=== PATIENT | male | born 1955 | race Caucasian/White ===

== ENCOUNTER → 2018-01-14 | Outpatient (CLI) | payer OTHER ==
[2018-01-14 13:15] LABS: Basophils # (A) 0.1 k/uL (0-0.2); Basophils % (A) 1 %; Eosinophils # (A) 0.1 k/uL (0-0.7); Eosinophils % (A) 1 %; HCT 48.5 % (39.0-53.0); HGB 16.2 gm/dL (13.0-17.5); Lymphocytes # (A) 3.2 k/uL (1.0-4.8); Lymphocytes % (A) 41 %; MCH 30.6 pg (25.0-35.0); MCHC 33.4 g/dL (31.0-37.0); MCV 91.5 fL (80.0-100.0); Mean Platelet Volume 6.7; Monocytes # (A) 0.6 k/uL (0-1.0); Monocytes % (A) 8 %; Neutrophils # (A) 3.5 k/uL (1.3-7.7); Neutrophils % (A) 46 %; Platelet Count 343 k/uL (150-450); RDW 13.1 % (11.5-15.5); WBC 7.7 k/uL (3.8-10.6)
[2018-01-14 13:19] LABS: Potassium 4.2 mmol/L (3.5-5.1)
== END | disposition home or self-care (01) ==
LOC: LABPAT 12:33
PROVIDERS: ATTEND Orthopaedic Surgery
DX: Z01.812 Encounter for preprocedural laboratory examination (principal); Z01.818 Encounter for other preprocedural examination; M75.41 Impingement syndrome of right shoulder; R58 Hemorrhage, not elsewhere classified; Z79.899 Other long term (current) drug therapy
CPT/HCPCS: 36415; 80051; 85025; 93005

== ENCOUNTER 2018-01-27 07:56 | Day surgery (SDC) | payer OTHER ==
[2018-01-15 11:00] VITALS: BMI 17.9
--- NOTE | 2018-01-26 09:02 | HP ---
HISTORY AND PHYSICAL Surgery is scheduled for 01/27/2018. Madi Pina is a 62-year-old patient seen with progressive right shoulder pain. We discussed treatment options. He elected to proceed with right shoulder arthroscopy. Consent regarding the procedure was obtained. Clearance was provided by Rylie Maurer. PAST MEDICAL HISTORY: Past medical history is noncontributory. PAST SURGICAL HISTORY: Unknown. DAILY MEDICATIONS: Ibuprofen. ALLERGIES: None reported. SOCIAL HISTORY: Patient smokes 1 pack of cigarettes daily. PHYSICAL EVALUATION OF RIGHT SHOULDER: Flexion 90 degrees, abduction 70 degrees, external rotation 50 degrees with pain and weakness. Tenderness along the anterolateral acromion and rotator cuff insertion site. Impingement positive at 80 degrees. Drop-arm sign is positive. Distal neurovascular exam is intact. Right shoulder radiographs revealed a lateral downsloping anterior acromion as well as acromioclavicular joint osteoarthritis. IMPRESSION: Right shoulder impingement with rotator cuff tear and acromioclavicular joint osteoarthritis. PLAN: Right shoulder arthroscopy with subacromial decompression probable arthroscopic rotator cuff repair, possible Bhanu procedure and debridement. MMODL / IJN: [id number] /
[~2018-01-27 07:56] MED LIST: HYDROmorphone 0.5 MG/0.5 ML SYRINGE IVP PRN; LACTATED RINGERS 1,000 ML IV SCH; ONDANSETRON 4 MG/2 ML VIAL IVP PRN; ceFAZolin 1,000 MG in DEXTROSE/WATER 1 50ML.BAG IV ONE
[2018-01-27 08:50] VITALS: RESP 16
[2018-01-27] MEDS ORDERED: LIDOCAINE 1% 20 ML VIAL (10MG/ML) FOR IV START INTRADERMA ONE (08:51)
[2018-01-27] MEDS ORDERED: DEXAMETHASONE SOD PHOSPHATE 10 MG/ML 1 ML VIAL IV ONE (08:55)
[2018-01-27] MEDS ORDERED: MIDAZOLAM 2 MG/2 ML VIAL ONE (09:04)
[2018-01-27] MEDS ORDERED: LIDOCAINE 1% INJ 10MG/ML (20 ML MDV) ONE (11:15)
[2018-01-27] MEDS ORDERED: ePHEDrine SULFATE/0.9% NACL/PF 50 MG/5 ML SYRINGE IV ONE (11:15)
[2018-01-27] MEDS ORDERED: LIDOCAINE 2%-EPI 1:100,000 20 ML VIAL ONE (11:15)
[2018-01-27] MEDS ORDERED: ROPIVACAINE 5 MG/ML 30 ML VIAL ONE (11:15)
[2018-01-27] MEDS ORDERED: fentaNYL (PF) 50 MCG/ML 2 ML AMP ONE (11:15)
[2018-01-27] MEDS ORDERED: PROPOFOL 10 MG/ML 20 ML VIAL IV ONE (11:15)
--- NOTE | 2018-01-27 12:55 | P.OP ---
Date of Procedure: 01/27/18 Preoperative Diagnosis: Right shoulder impingement Postoperative Diagnosis: 1. Right shoulder rotator cuff tear 2. Right shoulder impingement 3. Right shoulder acromioclavicular joint osteoarthritis 4. Right shoulder partial long head biceps tendon tear 5. Right shoulder superficial labral tear Procedure(s) Performed: 1. Right shoulder arthroscopic rotator cuff repair 2. Right shoulder arthroscopic subacromial decompression 3. Right shoulder arthroscopic Bhanu procedure 4. Right shoulder arthroscopic biceps tenotomy 5. Right shoulder arthroscopic debridement labral tear Implants: 1-valeris 5.5 peek anchor Anesthesia: GETA, regional (Interscalene block) Surgeon: William Woodward [employer] Dispatcher #1: Bebeto Tolbert Estimated Blood Loss (ml): 15 Pathology: none sent Condition: stable Disposition: PACU Indications for Procedure: 62-year-old patient seen with progressive right shoulder pain. After treatment options were discussed, he elected to proceed with arthroscopy. Operative Findings: see description of procedure Description of Procedure: Patient underwent a shoulder block by department of anesthesia. The patient was then taken to the operative suite. The patient underwent a general anesthetic by the department of anesthesia. The patient was placed into a lateral position and secured. There was appropriate padding of the bony prominence. Right shoulder was then prepped and draped in normal sterile orthopedic fashion. We placed the extremity in 10 pounds of longitudinal traction. A posterior incision was now made for a posterior working portal site. The trocar and cannula were inserted into the glenohumeral joint. Arthroscopy was initiated. Spinal needle was now inserted anteriorly, to ascertain the anterior working portal site. An incision was now made in that area, a trocar was inserted followed by a probe. Was some superficial tearing of the superior labrum. Partial tearing and hyperemia long head biceps tendon. Mild grade 1 chondromalacia changes with no osteochondral tears. I performed an arthroscopic biceps tenotomy. I debrided the superficial labral tear down to stable tissue. The residual labrum was stable. Instruments were now removed from glenohumeral joint. Utilizing the posterior working portal site, the trocar and cannula were inserted into the subacromial space. Arthroscopy initiated. I made an incision 2 fingerbreadths lateral to the acromion. I introduced my trocar followed by my ArthroCare ablator. I now began ablating thick subacromial bursal tissue, which exposed the undersurface of the anterior acromion. This was diminished subacromial space. There was a very prominent anterior acromion. A motorized bur was introduced and a subacromial decompression was performed. I also excised some osteophytes off the inferior aspect of the distal clavicle. The AC joint was visualized and noted to be fairly arthritic. Our motorized bur was introduced in the anterior portal site and a Bhanu procedure was performed without difficulty, decompressing the AC joint nicely. I turned my attention to the rotator cuff. There was a 1-1.5 cm tear along the anterior aspect of the distal supraspinatus. I debrided the margins down to stable tissue. The defect now measured 1.5 cm and was freely mobile over the footprint. I abraded the footprint with a motorized bur. I passed 2 everted mattress sutures through good bites of rotator cuff tendon. I pull the tendon over the footprint and repaired it with one single 5.5 peek anchors which did compress the tendon along the footprint nicely. The residual suture limbs were clipped. The repair was probed and found to be stable. I injected 1 mL UCT intra- articular. Instruments were now removed from the portal sites. All portal sites were approximated with nylon suture. Sterile dressings were applied followed by a shoulder immobilizer. Luis A LLANOS assisted with the procedure. The patient was awakened, transferred to a bed, and taken to recovery in stable condition.
[2018-01-27 12:58] VITALS: TEMP 97
[2018-01-27 13:59] VITALS: BP 103/64; PULSE 74
== END 2018-01-27 14:17 | disposition home or self-care (01) ==
LOC: OR 07:56
PROVIDERS: ATTEND Orthopaedic Surgery
DX: M75.101 Unspecified rotator cuff tear or rupture of right shoulder, not specified as traumatic (principal); M25.811 Other specified joint disorders, right shoulder; M19.011 Primary osteoarthritis, right shoulder; S46.111A Strain of muscle, fascia and tendon of long head of biceps, right arm, initial encounter; M25.711 Osteophyte, right shoulder; S43.431A Superior glenoid labrum lesion of right shoulder, initial encounter; X58.XXXA Exposure to other specified factors, initial encounter; F17.210 Nicotine dependence, cigarettes, uncomplicated; Z79.1 Long term (current) use of non-steroidal anti-inflammatories (NSAID); Z91.018 Allergy to other foods
CPT/HCPCS: 64415; 29826; 29827; 29824; C1713; C1765; J2250; J1100; J2001; J3010; J0690; J2795; J2704

== ENCOUNTER → 2018-09-28 | Outpatient (CLI) | payer OTHER ==
--- NOTE | 2018-09-28 21:42 | CT ---
EXAMINATION TYPE: CT sinus wo con DATE OF EXAM: 09/28/2018 COMPARISON: NONE HISTORY: Chronic sinusitis per order. Sinus congestion for patient. CT DLP: 493.7 mGycm. Automated Exposure Control for Dose Reduction was Utilized. TECHNIQUE: CT scan of the sinuses is performed without contrast, axial images are obtained, coronal r eformatted images are also reviewed. FINDINGS: There is mild/moderate mucosal thickening inferiorly in the right maxillary sinus with nonv isualized wall suggesting remote trauma or fracture involving inferior aspect of the medial wall. The re is 6 mm mucous retention cyst or polyp in the lateral aspect of the left posterior ethmoid sinus o therwise paranasal sinuses are grossly clear. No suspicious opacification is seen. The ostiomeatal c omplex is patent bilaterally on the coronal images. Nasal septum is deviated to right of midline randolph g posterior aspect Visualized portion of mastoid air cells show no abnormal opacification. The globes are intact bilate rally. Visualized portion of brain parenchyma is unremarkable. IMPRESSION: Some chronic paranasal sinus disease. No acute sinusitis.
== END | disposition home or self-care (01) ==
LOC: RADCTMAIN 17:01
PROVIDERS: ATTEND Otolaryngology
DX: J34.89 Other specified disorders of nose and nasal sinuses (principal); J32.9 Chronic sinusitis, unspecified
CPT/HCPCS: 70486

== ENCOUNTER 2018-11-04 08:49 | Day surgery (SDC) | payer OTHER ==
[2018-10-28 13:34] VITALS: BMI 17.9
[~2018-11-04 08:49] MED LIST changes: +DEXAMETHASONE SOD PHOSPHATE 10 MG/ML 1 ML VIAL IV ONE; +DEXAMETHASONE SOD PHOSPHATE 4 MG/ML 1 ML VIAL IV ONE; +FAMOTIDINE 20 MG/2 ML VIAL IV ONE; +LIDOCAINE 1% 20 ML VIAL (10MG/ML) FOR IV START INTRADERMA PRN; +ONDANSETRON 4 MG/2 ML VIAL IVP ONE; -ONDANSETRON 4 MG/2 ML VIAL IVP PRN; +SCOPOLAMINE 1.5MG/72HR PATCH TRANSDERM ONE
[2018-11-04 09:43] VITALS: TEMP 98.1
[2018-11-04] MEDS: OXYMETAZOLINE 0.05% NASL SPRAY 1 SPRAY BOTTLE NASAL ONE ×5 (09:47→10:11)
[2018-11-04] MEDS ORDERED: ePHEDrine SULFATE/0.9% NACL/PF 50 MG/5 ML SYRINGE IV ONE (11:25)
[2018-11-04] MEDS ORDERED: DEXAMETHASONE SOD PHOS (MDV) 100 MG/10 ML VIAL ONE (11:25)
[2018-11-04] MEDS ORDERED: PROPOFOL 10 MG/ML 20 ML VIAL IV ONE (11:25)
[2018-11-04] MEDS ORDERED: LIDOCAINE 1% INJ 10MG/ML (20 ML MDV) ONE (11:25)
[2018-11-04] MEDS ORDERED: fentaNYL (PF) 50 MCG/ML 2 ML AMP ONE (11:25)
[2018-11-04] MEDS ORDERED: SUCCINYLCHOLINE CHLORIDE 100 MG/5 ML SYR IV ONE (11:25)
[2018-11-04] MEDS ORDERED: MIDAZOLAM 2 MG/2 ML VIAL ONE (11:25)
[2018-11-04] MEDS ORDERED: PHENYLEPHRINE-0.9% NACL SYG 1 MG/10 ML SYRINGE ONE (11:25)
[2018-11-04] MEDS ORDERED: LIDOCAINE 1%-EPI 1:100,000 20 ML VIAL SQ ONE ×2 (11:26)
[2018-11-04] MEDS ORDERED: FLUORESCEIN STRIPS 1 MG STRIP MISCELLANE ONE (11:27)
[2018-11-04] MEDS ORDERED: EPINEPHrine 1 MG/ML (MDV) 30 ML VIAL TOPICAL ONE (11:27)
[2018-11-04] MEDS ORDERED: BACITRACIN 500 UNIT/GM OINT 28.4 GM TUBE TOPICAL ONE (11:27)
[2018-11-04] MEDS ORDERED: BUPIVACAIN-EPI 0.5%-1:200,000 30 ML VIAL SQ ONE ×2 (11:27)
[2018-11-04] MEDS ORDERED: LACTATED RINGERS 1,000 ML IV ONE (12:14)
--- NOTE | 2018-11-04 12:58 | P.OP ---
Date of Procedure: 11/04/18 Preoperative Diagnosis: Chronic sinusitis Deviated nasal septum Bilateral hypertrophy of inferior nasal turbinates Postoperative Diagnosis: Same Procedure(s) Performed: Septoplasty Bilateral submucosal resection of the inferior turbinates with outfracturing compression Bilateral functional endoscopic sinus surgery with maxillary antrostomies and total ethmoidectomies Anesthesia: ZHEN Surgeon: Lani King Estimated Blood Loss (ml): 10 Pathology: other (sinonasal) Condition: stable Disposition: PACU Indications for Procedure: Patient complains of constant sinus problems with nasal obstruction, anosmia, discolored drainage. Has been placed on multiple courses of antibiotics and cortisone nasal sprays with no improvement. This problem is been going on for years and is affecting his sleep pattern. Since he has failed medical therapy, surgery was recommended. All risks, benefits, and alternative therapies were discussed. Consent was obtained and all questions were answered. Operative Findings: Patient was found have a deviated septum to the right with a large septal spur on the right side. Patient also had lani pus in the axillary sinuses along with infection of the ethmoid sinuses bilaterally. The inferior turbinates were large and obstructive. Description of Procedure: This patient was taken to the operative room and placed in the supine position. A general inhalation anesthetic was administered to the patient by the department of anesthesia with a functioning IV line in place. The patient was monitored throughout the entire case by the department of anesthesia. The eyes were taped shut for protection. The patient was placed in a slight reverse Trendelenburg position. The patient had previously utilize Afrin nasal spray preoperatively. The nose was evaluated and the septum lateral nasal wall and inferior turbinates were injected with lidocaine 1% with epinephrine 1 100,000 bilaterally. Approximately 10 minutes were allowed wait for full vasoconstrictive effects to take place. At this point a caudal incision was made over the caudal portion of the left septum down to the mucoperichondrium. A mucoperichondrial flap was elevated on the left side and dissection was carried with use of tunnels posteriorly. We then made a crossover incision through the cartilage to the contralateral side and for the mucoperichondrial flap development was performed to the extent of visualization on the contralateral side. After the cartilage was freed with use of several crosshatching incisions and removal of some redundant strips of septal cartilage, the septum was straightened and placed back in the midline. The septum was sutured fixated to the ovarian groove. Excellent straightening occurred and the septum was visibly straight. Incision was closed with a 40 rapid Vicryl. We utilized a running nonlocking fashion for closure of the incision. A quilting stitch was used to reapproximate the septal flaps with use of a 40 rapid Vicryl. We then entered the nose with a 0 and 30 Figueredo malik endoscope. Previous to this we did inject the lateral nasal wall and middle turbinate and uncinate process with lidocaine 1% with epinephrine 1 100,000. Approximately 10 minutes were allowed wait for full vasoconstrictive effects to take place. With use of a microdebrider and a pediatric backbiter, we took down the uncinate process bilaterally. We then opened the maxillary sinuses bilaterally. We utilized a microdebrider for this and entered the maxillary sinuses and removed diseased tissue. This was done bilaterally. After the maxillary sinuses were opened and the diseased tissue was removed we entered the ethmoid bulla and with use of a microdebrider and up-biting Concepcion, we followed the fovea frontalis through the basal lamella and into the posterior ethmoid air cells and did a total ethmoidectomy. We removed the anterior ethmoid air cells with use of a microdebrider and up-biting boss. After all the anterior ethmoid air cells were removed we did the same in the posterior ethmoid. A total ethmoidectomy was completed in that fashion with removal of all the anterior and posterior ethmoid air cells and diseased tissue. All ethmoid septations were removed. Ethmoid sinuses were opened totally. Xerogel was inserted and minimal bleeding was encountered. We reinspected the skull base there is no signs of any orbital penetration or signs of any intracranial penetration. The sugical site was reinspected after the xerogel was placed and no bleeding was seen. Intranasal splints were inserted and fixated at the end of the case. We utilized Mcdowell nasal splints. There will be removed and the patient returns to the office. Attention was then paid to the inferior turbinates. The bilateral inferior turbinates were hypertrophic and obstructive. We entered the anterior portion of the inferior turbinates with use of a microdebrider. We remove bone and submucosal elements with use of a microdebrider bilaterally. The inferior turbinates underwent a submucosal resection with removal of submucosal tissue and bone. We obtained a much better and normal in size for breathing. The inferior turbinates were then outfractured and compressed with a WePay nasal elevator. Excellent airway was obtained and was symmetric bilaterally. No bleeding was encountered.
[2018-11-04 13:21] VITALS: RESP 18
[2018-11-04 14:04] VITALS: BP 129/76; PULSE 76
== END 2018-11-04 14:36 | disposition home or self-care (01) ==
LOC: OR 08:49
PROVIDERS: ATTEND Otolaryngology
DX: J32.9 Chronic sinusitis, unspecified (principal); J34.2 Deviated nasal septum; J34.3 Hypertrophy of nasal turbinates; F17.210 Nicotine dependence, cigarettes, uncomplicated
CPT/HCPCS: 88305; 88300; 30520; 31267; 31255; 30140; J0171; J2250; J1100 ×2; J2405; J2001; J3010; J0690; J2370; J0330; J2704

== ENCOUNTER → 2019-02-10 | Outpatient (CLI) | payer OTHER ==
--- NOTE | 2019-02-11 08:49 | CT ---
EXAMINATION TYPE: CT thoracic spine wo con DATE OF EXAM: 02/10/2019 COMPARISON: None HISTORY: abnormal thoracic spine finding commented on prior cxr. M [id number] CT DLP: 1088 mGycm Automated exposure control for dose reduction was used. TECHNIQUE: CT of the thoracic spine is performed in the axial plane at 3 mm thick sections. Reconstru cted images in the coronal and sagittal plane are reviewed. FINDINGS: Disc heights are preserved. Vertebral body heights are preserved. No spinal canal stenosis or neural foraminal stenosis is present. Note is made of some apical thickening along apices. Comparison images or reports are unavailable identify abnormality discussed on chest x-ray. IMPRESSION: NO SUSPICIOUS ACUTE OR CHRONIC CHANGES THROUGH THE THORACIC SPINE.
== END ==
LOC: RADCTMAIN 15:53
DX: R07.89 Other chest pain (principal)
CPT/HCPCS: 72128

== ENCOUNTER → 2020-04-28 | Outpatient (CLI) | payer OTHER ==
--- NOTE | 2020-04-30 10:54 | CT ---
EXAMINATION TYPE: CT chest wo con DATE OF EXAM: 04/28/2020 COMPARISON: None HISTORY: SOB, hx of COPD CT DLP: 161.5 mGycm, Automated exposure control for dose reduction was used. CONTRAST: Performed injected with 0 mL of Isovue 300. TECHNIQUE: Axial images were obtained at 5 mm thick sections. Reconstructed images are reviewed on [employer] computer in the coronal plane. FINDINGS: Portion of the thyroid visualized is normal. Bilateral apical scarring appears to be present. Emphysematous changes are evident. There is a densit y within the left upper lobe measuring 0.5 cm, series 4 image 30. There is a 0.5 cm nodule within the right middle lobe. Series 4 image 38. Monitoring is recommended. Suspected Apical scarring could be monitored at the same time. No enlarged mediastinal or hilar adenopathy is evident. The ascending aorta diameter at the level of the main pulmonary artery is 4.9 cm. The main pulmonary artery diameter at the bifurcation is 2.3 cm. Mild coronary artery calcifications present. Limited CT sections are obtained through the upper abdomen. Abdomen is essentially unremarkable. IMPRESSIONS: 1. Ascending thoracic aortic aneurysm of 4.9 cm. 2. Couple of small densities within the bilateral lung tay. Monitoring is recommended. Follow-up C T chest in 6 months is recommended. 3. COPD.
== END | disposition home or self-care (01) ==
LOC: RADCTMAIN 13:56
PROVIDERS: ATTEND Internal Medicine Pulmonary Disease
DX: I71.2 Thoracic aortic aneurysm, without rupture (principal); R91.8 Other nonspecific abnormal finding of lung field; J44.9 Chronic obstructive pulmonary disease, unspecified; Z72.0 Tobacco use
CPT/HCPCS: 71250

== ENCOUNTER → 2020-11-28 | Outpatient (CLI) | payer OTHER ==
[2020-11-28 14:36] LABS: African American GFR (CKD) >90 (>60 ml/min/1.73 sqM); Blood Urea Nitrogen 13 mg/dL (9-20); Non-African American GFR(CKD) >90 (>60 ml/min/1.73 sqM)
--- NOTE | 2020-11-28 15:28 | CT ---
EXAMINATION TYPE: CT angio chest DATE OF EXAM: 11/28/2020 3:14 PM COMPARISON: CT chest April 28, 2020 HISTORY: Follow up for thoracic aortic aneurysm. CT DLP: 470 mGycm Automated exposure control for dose reduction was used. CONTRAST: CTA scan of the thorax is performed without and with IV Contrast, patient injected with 100ml mL of I sovue 370, aneurysm protocol. 3D reconstructed images are created on an independent workstation and reviewed.. FINDINGS: LUNGS: Mild to moderate underlying emphysematous changes redemonstrated. Stable 5 mm right midlung no dule anteriorly measures 39 appears to localize to the minor fissure, benign intrafissural lymph node suspected. Ktyu-eb-opqnvzcs biapical pleural/minimal scarring redemonstrated. Mild to minimal linear scarring in the bases. No new nodules or masses. No pleural effusion or pneumothorax seen bilaterall y. MEDIASTINUM: Noncontrast images show no suspicious hyperdensity to suggest intramural hematoma. Satis factory enhancement of the central pulmonary arteries. Persistent ascending aortic aneurysm up to 4.8 cm in size image 35 on current study no extension into the arch or descending aorta. Normal three-ve ssel origin from the arch.. There are no greater than 1 cm hilar or mediastinal lymph nodes. No ca rdiomegaly or pericardial effusion is seen. Cgso-oj-pqbpxfcu coronary artery calcification redemonstr ated. OTHER: Prominent Schmorl node and mild height loss along the superior T7 endplate redemonstrated. IMPRESSION: Stable ascending aortic aneurysm up to 4.8 cm in diameter.
--- NOTE | 2020-11-29 07:28 | ECHOF ---
Referral Reason:I35.8 MEASUREMENTS -------- HEIGHT: 188.0 cm WEIGHT: 65.8 kg BP: RVIDd: 3.8 cm (< 3.3) IVSd: 1.0 cm (0.6 - 1.1) LVIDd: 4.2 cm (3.9 - 5.3) LVPWd: 1.2 cm (0.6 - 1.1) IVSs: 1.5 cm LVIDs: 2.9 cm LVPWs: 1.5 cm LAESV Index (A-L): 24.06 ml/m Ao Diam: 3.4 cm (2.0 - 3.7) AV Cusp: 2.0 cm (1.5 - 2.6) MV EXCURSION: 16.721 mm (> 18.000) MV EF SLOPE: 119 mm/s (70 - 150) EPSS: 0.4 cm MV E Avery: 0.71 m/s MV DecT: 188 ms MV A Avery: 0.65 m/s MV E/A Ratio: 1.10 AV maxP.86 mmHg AV meanP.90 mmHg AR PHT: 720 ms RAP: 5.00 mmHg RVSP: 31.54 mmHg FINDINGS -------- Sinus rhythm. This was a technically adequate study. The left ventricular size is normal. Left ventricular wall thickness is normal. Overall left vent ricular systolic function is normal with, an EF between 55 - 60 %. The right ventricle is mild to moderately enlarged. Normal LA size by volume 22+/-6 ml/m2. The right atrial size is normal. Interatrial and interventricular septum intact. There is mild aortic valve sclerosis. There is mild aortic regurgitation. Functionally bicuspid a ortic valve. The mitral valve leaflets are mildly thickened. Mild mitral regurgitation is present. The tricuspid valve appears structurally normal. Mild tricuspid regurgitation present. There is n o evidence of pulmonary hypertension. The right ventricular systolic pressure, as measured by Doppl er, is 31.54mmHg. There is no pulmonic regurgitation present. The ascending aorta is dilated measuring up to {4.4 cm}. Normal inferior vena cava with normal inspiratory collapse consistent with estimated right atrial pre ssure of 5 mmHg. There is no pericardial effusion. CONCLUSIONS -------- 1. Left ventricular wall thickness is normal. 2. Overall left ventricular systolic function is normal with, an EF between 55 - 60 %. 3. The right ventricle is mild to moderately enlarged. 4. Normal LA size by volume 22+/-6 ml/m2. 5. There is mild aortic valve sclerosis. 6. There is mild aortic regurgitation. 7. Functionally bicuspid aortic valve. 8. Mild mitral regurgitation is present. 9. Mild tricuspid regurgitation present. 10. The ascending aorta is dilated measuring up to {Ao Asc Diam}. TUBE CUTTER: Karin Roman RDCS
== END | disposition home or self-care (01) ==
LOC: RADECHMAIN 13:04
PROVIDERS: ATTEND Thoracic Surgery (Cardiothoracic Vascular Surgery)
DX: I08.3 Combined rheumatic disorders of mitral, aortic and tricuspid valves (principal); I71.2 Thoracic aortic aneurysm, without rupture
CPT/HCPCS: 93306; 82565; 84520; 71275; 36415; Q9967

== ENCOUNTER → 2021-05-07 | Outpatient (CLI) | payer OTHER | END | disposition home or self-care (01) | CPT/HCPCS: 36415; 80051; 85025; 93005 ==

== ENCOUNTER 2021-05-23 07:49 | Day surgery (SDC) | payer OTHER ==
[2021-05-15 10:56] VITALS: BMI 19.2
--- NOTE | 2021-05-22 21:24 | HP ---
HISTORY AND PHYSICAL REASON FOR ADMISSION: Surgery scheduled 05/23/2021 HISTORY OF PRESENT ILLNESS: Madi Pina is a 66-year-old gentleman seen with progressive left knee pain. We discussed options for treatment. He elected to proceed with arthroscopy. Consent was obtained. PAST MEDICAL HISTORY: COPD. PAST SURGICAL HISTORY: Noncontributory. MEDICATIONS: Symbicort. ALLERGIES: None. SOCIAL HISTORY: Denies current tobacco use. PHYSICAL EXAMINATION: Evaluation of the left knee: Range of motion is 0-125. He has mild effusion. There is tenderness along the medial joint line. There is positive medial Naldo's. Ligaments are stable. Hip rotation is without pain. His distal neurovascular exam is intact. RADIOGRAPHS: Radiographs of the left knee reveals some osteoarthritic changes. IMPRESSION: 1. Internal derangement of left knee with meniscal tear. 2. Left knee mild osteoarthritis. 3. Chronic obstructive pulmonary disease. PLAN: Left knee arthroscopy with partial meniscectomy and debridement. Surgery scheduled for 05/23/2021. MMODL / IJN: [id number] /
[~2021-05-23 07:49] MED LIST changes: -DEXAMETHASONE SOD PHOSPHATE 10 MG/ML 1 ML VIAL IV ONE; -FAMOTIDINE 20 MG/2 ML VIAL IV ONE; -HYDROmorphone 0.5 MG/0.5 ML SYRINGE IVP PRN; -LIDOCAINE 1% 20 ML VIAL (10MG/ML) FOR IV START INTRADERMA PRN; -SCOPOLAMINE 1.5MG/72HR PATCH TRANSDERM ONE; -ceFAZolin 1,000 MG in DEXTROSE/WATER 1 50ML.BAG IV ONE
[2021-05-23] MEDS ORDERED: LIDOCAINE 1% (10MG/ML) FOR IV START INTRADERMA ONE (08:14)
[2021-05-23] MEDS ORDERED: BUPIVACAINE (PF) 0.25% 30 ML VIAL SQ ONE ×2 (08:25→09:00)
[2021-05-23] MEDS ORDERED: fentaNYL (PF) 50 MCG/ML 2 ML AMP ONE (08:27)
[2021-05-23] MEDS ORDERED: LIDOCAINE 1% INJ 10MG/ML (20 ML MDV) ONE (08:27)
[2021-05-23] MEDS ORDERED: PROPOFOL 10 MG/ML 20 ML VIAL IV ONE (08:27)
[2021-05-23] MEDS ORDERED: MIDAZOLAM 2 MG/2 ML VIAL ONE (08:27)
[2021-05-23] MEDS ORDERED: ceFAZolin 1,000 MG VIAL ONE (08:27)
[2021-05-23] MEDS ORDERED: IV FLUID CONTINUATION 1,000 ML IV ONE (08:31)
--- NOTE | 2021-05-23 09:13 | P.OP ---
Date of Procedure: 05/23/21 Preoperative Diagnosis: Internal derangement left knee Postoperative Diagnosis: 1. Tear medial meniscus left knee 2. 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 Reactive synovitis medial, lateral and suprapatellar compartments left knee Procedure(s) Performed: 1. Arthroscopic partial medial meniscectomy left knee 2. Arthroscopic chondroplasty medial femoral condyle left knee 3. Arthroscopic partial synovectomy medial, lateral and suprapatellar compartments left knee Anesthesia: GETA, local Surgeon: William Woodward Estimated Blood Loss (ml): 7 Pathology: none sent Condition: stable Disposition: PACU Indications for Procedure: 66-year-old patient seen with progressive left knee pain. After having treatment options discussed, he elected to proceed with arthroscopy. Operative Findings: See description of procedure Description of Procedure: Patient was taken to the operative suite. Patient underwent a general anesthetic by the department of anesthesia. Patient was given preoperative antibiotics. The left lower extremity was placed in a well-padded arthroscopic leg christianson. The left leg was prepped and draped in the normal sterile orthopedic fashion. A lateral parapatellar and suprapatellar incision was made. Trochars were inserted. Arthroscopy was initiated. Suprapatellar pouch revealed diffuse thick reactive synovitis. The patellofemoral joint appeared to articulate congruently. There with grade 1 chondromalacia with no tears present. The scope was guided into the medial gutter. No loose bodies or plica were identified. The scope was then guided into the medial compartment. A medial parapatellar incision was made. Trocar inserted followed by probe. It was a radial tear posterior horn medial meniscus. There were grade 1/2 chondromalacia changes of the medial femoral condyle with some osteochondral tears present. There was thick reactive some-itis anteriorly. I performed a partial medial meniscectomy. I performed a chondroplasty of the medial femoral condyle. I performed a partial synovectomy. The shaver was removed. The residual meniscus was stable. The residual osteochondral surface of the femoral condyle was stable. There was good decompression of the synovitis. Scope and probe were then guided into the intercondylar notch. Cruciates were identified, probed and found to be stable. The scope and probe were then guided into lateral compartment. Lateral meniscus was probed and found to be stable. There was no significant chondromalacia involving lateral compartment. There was some thick reactive synovitis anteriorly. I introduced a motorized shaver and I performed a partial synovectomy. Shaver was removed. There was good decompression of the synovitis. The scope was in guided back into the suprapatellar compartment. I introduced a motorized shaver into the super patellar compartment. I debrided some piecemeal fragments of meniscus I encountered. I performed a partial synovectomy. The shaver was removed. There was good decompression of the synovitis. I took one more look on the entire knee, no residual debris. Instruments were now removed from the joint. The joint was infiltrated with .25% Marcaine. Steri-Strips were applied to the portal sites. Sterile dressings were applied. The patient was placed into a MICHAEL hose. No tourniquet was utilized. The patient was awakened, transferred to a bed and taken to recovery stable satisfactory condition.
[2021-05-23 09:14] VITALS: RESP 16; TEMP 98
[2021-05-23] MEDS: HYDROmorphone 0.5 MG/0.5 ML SYRINGE IVP PRN ×2 (09:33→09:45)
[2021-05-23] MEDS ORDERED: HYDROcodone/APAP 5-325MG 1 EACH TAB ONE (10:38)
[2021-05-23] MEDS ORDERED: HYDROcodone/APAP 5-325MG 1 EACH TAB PO ONE (10:40)
[2021-05-23 10:56] VITALS: BP 112/63; PULSE 63
== END 2021-05-23 11:49 | disposition home or self-care (01) ==
LOC: OR 07:49
PROVIDERS: ATTEND Orthopaedic Surgery
DX: S83.242A Other tear of medial meniscus, current injury, left knee, initial encounter (principal); M17.12 Unilateral primary osteoarthritis, left knee; J44.9 Chronic obstructive pulmonary disease, unspecified; Z79.51 Long term (current) use of inhaled steroids; M94.262 Chondromalacia, left knee
CPT/HCPCS: 29881; J2250; J1100; J2405; J0690; J2001; J3010; J2704; J1170

== ENCOUNTER → 2021-12-16 | Outpatient (CLI) | payer OTHER ==
[2021-12-16 14:24] LABS: African American GFR (CKD) >90 (>60 ml/min/1.73 sqM); Blood Urea Nitrogen 17 mg/dL (9-20); Non-African American GFR(CKD) 88 (>60 ml/min/1.73 sqM)
--- NOTE | 2021-12-16 15:25 | CT ---
EXAMINATION TYPE: CT angio chest DATE OF EXAM: 12/16/2021 COMPARISON: 11/28/2020 HISTORY: Thoracic aortic aneurysm. CT DLP: 426.9 mGycm CONTRAST: CTA thoracic aorta with 3-D reconstruction is performed and without and with IV Contrast, patient inj ected with 100ml mL of Isovue 370. Contrast CTA of the thoracic aorta was performed from the lung apex through the upper abdomen. 3D re construction imaging obtained at a separate workstation. CT Chest: THORACIC AORTA: There is ascending thoracic aortic aneurysm measuring 4.7 cm in AP dimension versus 4 .8 cm measured previously. There is ectasia of the descending thoracic aorta without additional aneur ysms seen. No evidence for dissection or complicating factor. LUNGS: Mild emphysematous changes seen. The lungs are clear and free of infiltrate or atelectasis. No pulmonary nodule or mass is detected. No pleural effusion or CT evidence of interstitial lung dis ease. MEDIASTINUM: No evidence for mediastinal hematoma. The heart is not enlarged. No evidence for med iastinal mass or adenopathy. HILAR STRUCTURES: No evidence for mass. No hilar adenopathy is appreciated. OTHER: I cannot exclude a soft tissue lesion left kidney at its mid pole measuring 2.0 x 2.[address] of the kidneys with contrast is advised. IMPRESSION- 1. Essentially stable ascending thoracic aortic aneurysm. 2. Left renal lesion is difficult to exclude. Dedicated CT of the kidneys is advised.
--- NOTE | 2021-12-17 11:00 | ECHOF ---
Referral Reason:I71.2 MEASUREMENTS -------- HEIGHT: 188.0 cm WEIGHT: 72.6 kg BP: 138/73 RVIDd: 3.4 cm (< 3.3) IVSd: 1.1 cm (0.6 - 1.1) LVIDd: 4.5 cm (3.9 - 5.3) LVPWd: 1.1 cm (0.6 - 1.1) IVSs: 1.5 cm LVIDs: 3.0 cm LVPWs: 1.5 cm LA Diam: 3.2 cm (2.7 - 3.8) LAESV Index (A-L): 19.96 ml/m Ao Diam: 3.9 cm (2.0 - 3.7) AV Cusp: 2.4 cm (1.5 - 2.6) MV EXCURSION: 10.412 mm (> 18.000) MV EF SLOPE: 91 mm/s (70 - 150) EPSS: 0.9 cm MV E Avery: 0.72 m/s MV DecT: 193 ms MV A Avery: 0.65 m/s MV E/A Ratio: 1.11 AV maxP.79 mmHg AV meanP.98 mmHg RAP: 5.00 mmHg RVSP: 25.41 mmHg FINDINGS -------- Sinus rhythm. This was a technically adequate study. The left ventricular size is normal. There is borderline concentric left ventricular hypertrophy. Overall left ventricular systolic function is normal with, an EF between 55 - 60 %. The right ventricle is mildly enlarged. Normal LA size by volume 22+/-6 ml/m2. The right atrium is normal in size. Interatrial and interventricular septum intact. The aortic valve is bicuspid. There is mild aortic valve sclerosis. Trace to mild aortic regurgit ation. There is mild aortic stenosis present. Peak/mean gradient across the Aortic Valve is 16.79 mmHg / 8.98mmHg. The mitral valve is normal. Mild tricuspid regurgitation present. Right ventricular systolic pressure is normal at < 35 mmHg. The pulmonic valve is normal. The aortic root is mildy dilated. Ascending AO is 41 mm Normal inferior vena cava with normal inspiratory collapse consistent with estimated right atrial pre ssure of 5 mmHg. The inferior vena cava is mildly dilated. There is no pericardial effusion. CONCLUSIONS -------- 1. The left ventricular size is normal. 2. There is borderline concentric left ventricular hypertrophy. 3. Overall left ventricular systolic function is normal with, an EF between 55 - 60 %. 4. The right ventricle is mildly enlarged. 5. The aortic valve is bicuspid. 6. There is mild aortic valve sclerosis. 7. Trace to mild aortic regurgitation. 8. There is mild aortic stenosis present. 9. Peak/mean gradient across the Aortic Valve is 16.79mmHg / 8.98mmHg. 10. Mild tricuspid regurgitation present. 11. The aortic root is mildy dilated. 12. Ascending AO is 41 mm 13. Normal inferior vena cava with normal inspiratory collapse consistent with estimated right atrial pressure of 5 mmHg. 14. The inferior vena cava is mildly dilated. 15. There is no pericardial effusion. CASUALTY CLAIMS SUPERVISOR: Gracy White RDCS
== END | disposition home or self-care (01) ==
LOC: RADECHMAIN 13:41
PROVIDERS: ATTEND Thoracic Surgery (Cardiothoracic Vascular Surgery)
DX: I71.2 Thoracic aortic aneurysm, without rupture (principal); I35.8 Other nonrheumatic aortic valve disorders
CPT/HCPCS: 93306; 82565; 84520; 71275; 36415; Q9967

== ENCOUNTER → 2022-01-29 | Outpatient (CLI) | payer OTHER ==
[2022-01-29 16:41] LABS: African American GFR (CKD) >90 (>60 ml/min/1.73 sqM); Blood Urea Nitrogen 11 mg/dL (9-20); Non-African American GFR(CKD) 88 (>60 ml/min/1.73 sqM)
--- NOTE | 2022-01-29 18:01 | CT ---
EXAMINATION TYPE: CT abdomen wo/w con DATE OF EXAM: 01/29/2022 COMPARISON: CT thoracic aortic angiogram dated 12/16/2021 HISTORY: renal mass CT DLP: 480.8 mGycm Automated exposure control for dose reduction was used. TECHNIQUE: Helical acquisition of images was performed from the lung bases through the top of iliac crest to include entire abdomen. CONTRAST: Performed with Oral Contrast and with IV Contrast, patient injected with 100 mL of Isovue 300. FINDINGS: LUNG BASES: COPD changes. LIVER/GB: No significant abnormality is appreciated. PANCREAS: Fatty infiltration of the pancreas mainly the head. SPLEEN: No significant abnormality is seen. ADRENALS: No significant abnormality is seen. KIDNEYS: Right lower pole simple renal cyst without suspicious feature. Prominent renal tissue is see n between the upper and lower poles of the left kidney giving a pseudolesion appearance, unchanged si nce November 2020 CT scan. No definite suspicious left renal lesion identified. Unremarkable kidneys o therwise. BOWEL: Unremarkable stomach, duodenum and visualized small bowel. Fecal loading of the visualized po rtion of the colon. LYMPH NODES: No pathologically enlarged abdominal lymph nodes. OSSEOUS STRUCTURES: Osteopenia. No aggressive bone lesion. FREE AIR: No free air is visualized. OTHER: Arterial atherosclerotic calcifications. No sizable ascites. IMPRESSION: Left renal pseudolesion as described above. No suspicious renal lesion identified by this CT scan. In cidental findings as described above.
== END | disposition home or self-care (01) ==
LOC: RADCTMAIN 16:10
DX: R93.0 Abnormal findings on diagnostic imaging of skull and head, not elsewhere classified (principal)
CPT/HCPCS: 82565; 84520; 74170; 36415; Q9967

== ENCOUNTER → 2024-01-22 | Outpatient (CLI) | payer OTHER ==
[2024-01-22 15:45] LABS: African American GFR (CKD) >90 (>60 ml/min/1.73 sqM); Blood Urea Nitrogen 14 mg/dL (9-20); Non-African American GFR(CKD) >90 (>60 ml/min/1.73 sqM)
--- NOTE | 2024-01-24 08:30 | CT ---
EXAMINATION TYPE: CT angio chest CT DLP: 354.9 mGycm, Automated exposure control for dose reduction was used. DATE OF EXAM: 01/22/2024 4:30 PM COMPARISON: 01/09/2023. CLINICAL INDICATION:Male, 68 years old with history of I71.20 THORACIC AORTIC ANEURYSM; THORACIC AORT IC ANEURYSM TECHNIQUE/CONTRAST: CTA scan of the thorax is performed with IV Contrast, patient injected with 100ml mL of Isovue 370, M IP images are created and reviewed these are created on a separate workstation.. FINDINGS: Lungs/Pleura: Mild centrilobular emphysema changes are present throughout the lungs. Intrafissural ly mph node is seen along the right minor fissure series 6 image 91 No evidence of focal consolidation, pleural effusion or pneumothorax. Airway: Large airways are patent. Heart: The heart is mildly enlarged for size. Mild aortic valve leaflet calcifications. Vasculature: ; Thoracic aorta is mildly ectatic up to 43 mm No evidence for intramural hematoma on no ncontrast imaging. No evidence of intimal flap to suggest dissection. No aneurysm identified. Scatter ed atherosclerotic disease. Mediastinum: No gross evidence of adenopathy. Musculoskeletal: Mild degenerative disc disease changes are present throughout the thoracolumbar spin e. Soft Tissues: Unremarkable. Lower neck: No significant findings. Upper Abdomen: No significant findings. IMPRESSION: 1. Ascending thoracic aorta ectasia up to 43 mm. No evidence for dissection, aneurysm or occlusion. 2. Moderate emphysema.
== END | disposition home or self-care (01) ==
LOC: RADCTMAIN 15:02
PROVIDERS: ATTEND Thoracic Surgery (Cardiothoracic Vascular Surgery)
DX: J43.2 Centrilobular emphysema (principal); I77.810 Thoracic aortic ectasia
CPT/HCPCS: 82565; 84520; 71275; 36415; Q9967

== ENCOUNTER 2025-06-08 16:45 | Emergency (ER) | payer OTHER ==
[2025-06-08 16:59] VITALS: TEMP 98.2
[2025-06-08] MEDS: Acetaminophen-Codeine 300-30mg TAB PO STA (18:26)
--- NOTE | 2025-06-08 18:41 | CT ---
EXAMINATION TYPE: CT brain cspine wo con DATE OF EXAM: 06/08/2025 6:00 PM COMPARISON: CT face from same day. CLINICAL INDICATION: Male, 70 years old with history of fall; FALL, pain TECHNIQUE: Brain: Multiple axial CT images of the brain were obtained without IV contrast. Cspine: Axial CT images from the skull base to the inferior aspect of T2 we obtained without intraven ous contrast. Coronal and sagittal reformatted images were also reviewed. . CT DLP: 982.4 mGycm, Automated exposure control for dose reduction was used. FINDINGS: Brain: Extra-axial spaces: No abnormal extra-axial fluid collections. Ventricular system: Within normal limits Cerebral parenchyma: No acute intraparenchymal hemorrhage or mass effect. The melendez-white junction is well differentiated. Cerebellum: Unremarkable. Mass effect: No evidence of midline shift. Intracranial vasculature: Atherosclerotic calcifications of the intracranial vessels. Soft tissues: Normal. Calvarium/osseous structures: Multiple acute fractures are noted involving the face which are better described on the face CT. No acute depressed calvarial fracture. Paranasal sinuses and mastoid air cells: Clear. Visualized orbits: Orbital contents are intact. Cervical spine: Fracture: No acute fractures. Osseous structures: Mild multilevel disc degenerative disease. Vertebral alignment: Within normal limits. Spinal canal/Neural Foramina: Multilevel disc osteophyte complexes are seen most pronounced at C3-C4 where there is mild spinal canal stenosis . No evidence for significant neural foraminal stenosis. Neck soft tissues: Prevertebral soft tissues are within normal limits. Other: The airway is patent. Centrilobular emphysematous changes with atelectasis/scarring in the fede ateral apices. IMPRESSION: 1. No acute intracranial process. 2. Multiple acute fractures of the face better detailed on CT face report from the same day. 3. No evidence of cervical spine fracture. 4. Mild multilevel degenerative disc disease. [facility], , 06/08/2025 6:38 PM
--- NOTE | 2025-06-08 18:55 | CT ---
EXAMINATION TYPE: CT facial bones wo con DATE OF EXAM: 06/08/2025 6:00 PM COMPARISON: CT head from same day. CLINICAL INDICATION: Male, 70 years old with history of fall; PHH, FALL TECHNIQUE: Multiple unenhanced axial CT images were obtained of the facial bones soft tissue and bone windows. Coronal, axial and sagittal reformatted images were also provided in soft tissue and bone windows and submitted for interpretation. Additional 3-D reformatted images were obtained on a [employer] workstation. . Contrast used: mL of , (none if empty) Oral contrast used: (none if empty) CT DLP: 725.7 mGycm, Automated exposure control for dose reduction was used. FINDINGS: Multiple fractures of the face are noted. There is a mildly comminuted nasal bridge fracture. Mildly displaced and comminuted left nasal bone fracture. There is a nondisplaced mildly comminuted fracture of the right zygomatic process. There is a minimally displaced fracture involving the orbital surfac e of the right zygomatic bone. Curvilinear fracture is seen involving the anterior lateral right maxi llary bone with additional minimally displaced comminuted fractures seen involving the posterior late ral aspect of the right maxillary sinus. There is a minimally displaced fracture of the left mandibul ar ramus. No obvious condylar subluxation however this should be correlated with exam. Overall the pa ranasal sinuses and mastoid air cells are clear. There is some soft tissue attenuation along the infr aorbital maxillary soft tissues. Orbital contents are intact. IMPRESSION: Multiple acute fractures of the face are detailed above involving the nose, right zygomatic process, right maxillary sinus and left mandible. Please see bookmark images. Mild swelling in the infraorbita l maxillary soft tissues. Please see brain C-spine study from the same day for other details. [facility], , 06/08/2025 6:53 PM
--- NOTE | 2025-06-08 20:10 | ED ---
Fall HPI - General Chief Complaint: Fall Stated Complaint: Fall-Facial injury Time Seen by Provider: 06/08/25 17:02 Source: patient Mode of arrival: ambulatory - History of Present Illness Initial Comments: 70-year-old male presenting with chief complaint of fall from last night. Patient reports that yesterday he had dental work done. Late last night he had a nosebleed and in the process slipped on a puddle of blood on the floor hitting his face. Today he was having left-sided jaw pain and went to urgent care, they saw he had periorbital bruising around the right eye and sent him here for further evaluation. He denies any loss of consciousness or blood thinners. No nausea or vomiting. No dizziness. No neck pain numbness or tingling. - Related Data Home Medications Medication Instructions Recorded Confirmed Atorvastatin [Lipitor] 80 mg PO HS 05/15/21 05/23/21 Budesonide-Formot 160-4.5 Mcg 2 puff INHALATION BID 05/15/21 05/23/21 [Symbicort 160-4.5 Mcg Inhaler] Ibuprofen(Dose Unknown) 1 tab PO DIRECTED 05/15/21 05/23/21 Tiotropium 18 Mcg/Puff [Spiriva] 2 puff INHALATION DAILY 05/15/21 05/23/21 Previous Rx's Medication Instructions Recorded HYDROcodone/APAP 5-325MG [[place] 1 tab PO Q6HR PRN 3 Days #12 tab 05/23/21 5-325] Allergies Allergy/AdvReac Type Severity Reaction Status Date / Time coconut AdvReac Unknown Nausea Verified 06/08/25 16:58 Review of Systems ROS Statement: Those systems with pertinent positive or pertinent negative responses have been documented in the HPI. ROS Other: All systems not noted in ROS Statement are negative. Past Medical History Past Medical History: COPD, Hyperlipidemia Additional Past Medical History / Comment(s): HX OF FALL(1975 WITH MULTIPLE FX'S- RIGHT LEG, LEFT WRIST,SHATTERED FACE & RIGHT WRIST, FX JAW- JAW HAS WIRES., "borderline cholesterol", 4.8 cm ascending aortic aneurysm on CT 11/28/20 History of Any Multi-Drug Resistant Organisms: None Reported Past Surgical History: Orthopedic Surgery Additional Past Surgical History / Comment(s): SURGERIES FOR FX IN 1975-RIGHT LEG, MARY WRISTS, FACIAL AND JAW . rt shoulder surgery Past Anesthesia/Blood Transfusion Reactions: No Reported Reaction Past Psychological History: No Psychological Hx Reported Smoking Status: Former smoker Past Alcohol Use History: Occasional Past Drug Use History: None Reported - Past Family History Mother Family Medical History: No Reported History General Exam Limitations: no limitations General appearance: alert, in no apparent distress Head exam: Present: normocephalic Expanded Head exam: Present: contusion (Periorbital bruising on the right side) Eye exam: Present: PERRL, EOMI, periorbital swelling Pupils: Present: normal accommodation Neck exam: Present: normal inspection. Absent: meningismus Respiratory exam: Absent: respiratory distress Cardiovascular Exam: Present: regular rate Neurological exam: Present: alert, oriented X3 Expanded Eye Response: (4) open spontaneously Motor Response: (6) obeys commands Verbal Response: (5) oriented Ada Total: 15 Psychiatric exam: Present: normal affect, normal mood Course Vital Signs 06/08/25 06/08/25 16:54 20:33 Temperature 98.2 F Pulse Rate 90 95 Respiratory 18 17 Rate Blood Pressure 121/65 144/93 O2 Sat by Pulse 97 94 L Oximetry Medical Decision Making - Medical Decision Making Was pt. sent in by a medical professional or institution (, PA, [employer], urgent care, hospital, or alf...) When possible be specific @ -Urgent care Did you speak to anyone other than the patient for history (EMS, parent, family, police, friend...)? What history was obtained from this source @ -No Did you review nursing and triage notes (agree or disagree)? Why? @ -I reviewed and agree with nursing and triage notes Were old charts reviewed (outside hosp., previous admission, EMS record, old EKG, old radiological studies, urgent care reports/EKG's, alf records)? Report findings @ -No old charts were reviewed Differential Diagnosis (chest pain, altered mental status, abdominal pain women, abdominal pain men, vaginal bleeding, weakness, fever, dyspnea, syncope, headache, dizziness, GI bleed, back pain, seizure, CVA, palpatations, mental health, musculoskeletal)? @ -Differential includes uncomplicated head injury, concussion, fracture, hemorrhage, not an all-inclusive list EKG interpreted by me (3pts min.). @ -As above X-rays interpreted by me (1pt min.). @ -None done CT interpreted by me (1pt min.). @ -CT shows multiple acute fractures of the face. Mildly comminuted nasal bridge fracture. Mildly displaced and comminuted left nasal bone fracture. Nondisplaced mildly comminuted fracture of the right psychomotor process. Minimally displaced fracture involving the orbital surface of the right zyg omatic bone. Curvilinear fracture involving the anterior lateral right maxillary bone with additional minimally displaced comminuted fractures seen involving the posterior lateral aspect of the right maxillary sinus. Minimally displaced fracture of the left mandibular ramus. No obvious condylar subluxation however this should be correlated with exam. Overall paranasal sinuses and mastoid air cells are clear. Some soft tissue attenuation along the infraorbital maxillary soft tissues. Orbital contents are intact No acute intracranial process. No evidence of cervical spine fracture. Mild multilevel degenerative disc disease U/S interpreted by me (1pt. min.). @ -None done What testing was considered but not performed or refused? (CT, X-rays, U/S, labs)? Why? @ -None What meds were considered but not given or refused? Why? @ -None Did you discuss the management of the patient with other professionals (professionals i.e. , PA, [employer], lab, RT, psych nurse, social services designee, school admissions representative, te acher, division officer weapons department, window caser)? Give summary @ -Spoke with Dr. Beckwith at [facility] accepts transfer Later spoke with on-call trauma surgeon at [facility] who accepts transfer Was smoking cessation discussed for >3mins.? @ -No Was critical care preformed (if so, how long)? @ -No Were there social determinants of health that impacted care today? How? (Homelessness, low income, unemployed, alcoholism, drug addiction, transportation, low edu. Level, literacy, decrease access to med. care, long term, rehab)? @ -No Was there de-escalation of care discussed even if they declined (Discuss DNR or withdrawal of care, Hospice)? DNR status @ -No What co-morbidities impacted this encounter? (DM, HTN, Smoking, COPD, CAD, Cancer, CVA, ARF, Chemo, Hep., AIDS, mental health diagnosis, sleep apnea, morbid obesity)? @ -None Was patient admitted / discharged? Hospital course, mention meds given and route, prescriptions, significant lab abnormalities, going to OR and other pertinent info. @ -70-year-old male presenting with chief complaint of left-sided jaw pain after a slip and fall hitting his face late last night. No loss of consciousness or blood thinners. Patient has multiple facial bone fractures including a left mandibular fracture as well as fractures of the nasal bone, right zygomatic process, and right maxillary sinus. Patient will require transfer to [facility]. He is agreeable with this plan, however the patient is refusing transport stating that he has no one to take care of his dog at home. I informed the patient that it would be safest if he were transported via EMS. I explained to him that if he transported himself he would not be under the close monitoring that would be most appropriate and this could result in at worst or permanent injury. The patient conveys verbal understanding, he is of sound mind and body and able to make his own decisions. He understands what I am telling him and understands the risks, still insists on driving hi mself there tonight after he feeds his dog at home. Provided with transfer materials for [facility]. I discussed this case with my attending Dr. Irvin Undiagnosed new problem with uncertain prognosis? @ -No Drug Therapy requiring intensive monitoring for toxicity (Heparin, Nitro, Insulin, Cardizem)? @ -No Were any procedures done? @ -No Diagnosis/symptom? @ -Left mandibular fracture, right zygomatic process fracture, right maxillary sinus fracture, nasal bone fracture Acute, or Chronic, or Acute on Chronic? @ -Acute Uncomplicated (without systemic symptoms) or Complicated (systemic symptoms)? @ -Complicated Side effects of treatment? @ -No Exacerbation, Progression, or Severe Exacerbation? @ -No Poses a threat to life or bodily function? How? (Chest pain, [place], [place], pneumonia, PE, COPD, DKA, ARF, appy, cholecystitis, CVA, Diverticulitis, Homicidal, Suicidal, threat to staff... and all critical care pts) @ -Yes Disposition Clinical Impression: Mandibular fracture, Zygomatic fracture, Nasal bone fracture, Closed fracture of right maxillary sinus Disposition: OTHER INSTITUTION NOT DEFINED Condition: Stable Referrals: Jaylen Joe DO [Primary Care Provider] - 1-2 days Time of Disposition: 20:14 - Out of Hospital Transfer - Req. Specs Out of Hospital Transfer - Requested Specifics: Other Emergency Center ([facility])
[2025-06-08 20:35] VITALS: BP 144/93; PULSE 95; RESP 17
== END 2025-06-08 20:42 | disposition other institution (70) ==
LOC: EC 16:45
DX: S02.40CA Maxillary fracture, right side, initial encounter for closed fracture (principal); S02.2XXA Fracture of nasal bones, initial encounter for closed fracture; S02.40EA Zygomatic fracture, right side, initial encounter for closed fracture; Z87.891 Personal history of nicotine dependence; Z91.018 Allergy to other foods; X58.XXXA Exposure to other specified factors, initial encounter
CPT/HCPCS: 70450; 70486; 72125; 99284